=== PATIENT | male | born 1945 | race Caucasian/White ===

== ENCOUNTER 2025-07-10 06:22 | Inpatient (IN) | payer OTHER, BC ==
[2025-07-10] MEDS ORDERED: HEPARIN NA (PORCINE) 5,000 UNITS/ML 1ML VIAL ONE (10:24)
[2025-07-10] MEDS ORDERED: LIDOCAINE HCL 1%, 10 MG/ML (20ML VIAL) ONE (10:24)
[2025-07-10] MEDS ORDERED: LIDOCAINE HCL 0.5%, 5 MG/ML (50mL SDVIAL) ONE (10:25)
[2025-07-10] MEDS ORDERED: LIDOCAINE HCL/PF 2% SDV 5ML VIAL ONE (16:15)
[2025-07-10] MEDS ORDERED: MIDAZOLAM HCL 2 MG/2 ML SINGLE DOSE VIAL ONE (16:15)
[2025-07-10] MEDS ORDERED: ROCURONIUM BROMIDE 50 MG/5 ML SYRINGE ONE (16:40)
[2025-07-10] MEDS ORDERED: PROPOFOL 20 ML ONE (16:41)
[2025-07-10] MEDS ORDERED: DEXAMETHASONE SOD PHOSPHATE 4 MG/1 ML VIAL ONE (16:45)
[2025-07-10] MEDS ORDERED: SEVOFLURANE 250 ML BTL ONE (16:51)
[2025-07-10] MEDS: ceFAZolin 2 GRAM PREMIX BAG IVPB ONE (16:55)
[2025-07-10] MEDS ORDERED: ONDANSETRON 4 MG/2 ML VIAL ONE (17:15)
[2025-07-10] MEDS ORDERED: ACETAMINOPHEN INJECTION 100 ML ONE (18:06)
[2025-07-10] MEDS ORDERED: PROTAMINE SULFATE 50 MG/5 ML VIAL ONE (18:24)
[2025-07-10] MEDS ORDERED: SUGAMMADEX SODIUM 200 MG/2 ML VIAL ONE (18:37)
[2025-07-10] MEDS: POVIDONE-IODINE OINTMENT 10% - 28.4 GM TUBE TP ONE (18:40)
[2025-07-10] MEDS ORDERED: LACTATED RINGERS SOLUTION 1,000 ML/1,000 ML INFUS.BAG IV SCH (19:00)
[2025-07-10] MEDS ORDERED: ACETAMINOPHEN 1000 MG/100 ML BAG IVPB PRN (19:03)
[2025-07-10] MEDS ORDERED: ONDANSETRON 4 MG/2 ML VIAL IVPUSH PRN (19:38)
[2025-07-10] MEDS: LACTATED RINGERS SOLUTION 1,000 ML/1,000 ML INFUS.BAG IV SCH (21:00)
[2025-07-10] MEDS: ATORVASTATIN CA 10 MG TABLET (FP) PO SCH (21:42)
[2025-07-10] MEDS: ENOXAPARIN NA (PORCINE) 40 MG/0.4 ML DISP.SYRIN SQ ONE (21:43)
[2025-07-11] MEDS: CEFAZOLIN 1 GM in DEXTROSE 5%-WATER - 50 ML IVPB SCH
[2025-07-11] MEDS: metFORMIN HCL 500 MG TABLET (FP) PO SCH (06:21)
[2025-07-11 07:37] LABS: MCHC 33.9 g/dl (32.3-36.5); MEAN CELL VOLUME 95.4 fl (79.0-92.2); MEAN PLT VOLUME 11.1 fl (9.4-12.4); RDW 11.9 % (12.6-16.6)
[2025-07-11 08:15] LABS: GLUCOSE,RANDOM 177.0 mg/dL (74-106); TOT PROT 5.9 g/dl (6.4-8.2)
[2025-07-11 08:16] LABS: CO2 19.0 mmol/L (21-32)
[2025-07-11 08:18] LABS: ALK PHOS 44.0 U/L (40-150)
[2025-07-11 08:20] LABS: SGOT/AST 20.0 U/L (5-34); SGPT/ALT 16.0 U/L (0-55)
[2025-07-11 08:21] LABS: CREATININE 1.47 mg/dL (0.55-1.3)
[2025-07-11] MEDS: CLOPIDOGREL BISULFATE 75 MG TABLET (FP) PO SCH (09:46)
[2025-07-11] MEDS: ATENOLOL 25 MG TABLET (FP) PO SCH (09:46)
[2025-07-11] MEDS: HYDROCHLOROTHIAZIDE 12.5 MG CAPSULE (FP) PO SCH (09:46)
[2025-07-11] MEDS: ASPIRIN COATED 81 MG TABLET.EC PO SCH (09:46)
[2025-07-11] MEDS: INSULIN ASPART SLIDING SCALE (NOVOLOG) 1 VIAL SQ SCH (12:30)
[2025-07-11 16:02] VITALS: BMI 22.6
[2025-07-11] MEDS ORDERED: ACETAMINOPHEN 1000 MG/100 ML BAG IVPB PRN (17:33)
[2025-07-11 17:44] VITALS: RESP 18
[2025-07-11] MEDS: LACTATED RINGERS SOLUTION 1,000 ML/1,000 ML INFUS.BAG IV SCH (18:45)
[2025-07-11] MEDS: ATORVASTATIN CA 10 MG TABLET (FP) PO SCH (21:34)
[2025-07-12] MEDS: INSULIN ASPART SLIDING SCALE (NOVOLOG) 1 VIAL SQ SCH (06:42)
[2025-07-12] MEDS: ASPIRIN COATED 81 MG TABLET.EC PO SCH (09:11)
[2025-07-12] MEDS: HYDROCHLOROTHIAZIDE 12.5 MG CAPSULE (FP) PO SCH (09:12)
[2025-07-12] MEDS: CLOPIDOGREL BISULFATE 75 MG TABLET (FP) PO SCH (09:12)
[2025-07-12] MEDS: ATENOLOL 25 MG TABLET (FP) PO SCH (09:13)
[2025-07-12 09:15] LABS: MCHC 32.4 g/dl (32.3-36.5); MEAN CELL VOLUME 98.8 fl (79.0-92.2); MEAN PLT VOLUME 10.7 fl (9.4-12.4); RDW 12.4 % (12.6-16.6)
[2025-07-12 09:47] LABS: GLUCOSE,RANDOM 219.0 mg/dL (74-106); TOT PROT 6.0 g/dl (6.4-8.2)
[2025-07-12 09:48] LABS: CO2 26.0 mmol/L (21-32)
[2025-07-12 09:50] LABS: ALK PHOS 44.0 U/L (40-150)
[2025-07-12 09:53] LABS: SGOT/AST 23.0 U/L (5-34); SGPT/ALT 13.0 U/L (0-55)
[2025-07-12 09:59] LABS: CREATININE 1.43 mg/dL (0.55-1.3)
[2025-07-12 10:30] VITALS: BP 106/46; PULSE 62; TEMP 98.2
[2025-07-12] MEDS ORDERED: metFORMIN HCL 500 MG TABLET (FP) PO SCH (16:30)
== END 2025-07-12 11:15 | disposition home or self-care (01) | DRG 254 ==
LOC: J2C 06:22 → JICU 20:43 → J5S 07-11 16:57
PROVIDERS: ADMIT Surgery; ATTEND Surgery
PROC: 06UP07Z Supplement Right Saphenous Vein with Autologous Tissue Substitute, Open Approach (ICD-10-PCS; 2025-07-10)
PROC: 04CK0ZZ Extirpation of Matter from Right Femoral Artery, Open Approach (ICD-10-PCS; principal; 2025-07-10 12:00)
DX: E11.51 Type 2 diabetes mellitus with diabetic peripheral angiopathy without gangrene (principal); I25.10 Atherosclerotic heart disease of native coronary artery without angina pectoris; E11.22 Type 2 diabetes mellitus with diabetic chronic kidney disease; I12.9 Hypertensive chronic kidney disease with stage 1 through stage 4 chronic kidney disease, or unspecified chronic kidney disease; N18.9 Chronic kidney disease, unspecified
CPT/HCPCS: 36415; 80053; 82962; 83735; 84100; 85025; 85027; 86870; 86880; 86900; 86902; 86922; 94760; 97116-GP; 97162-GP